=== PATIENT | male | born 1975 | race Caucasian/White ===

== ENCOUNTER → 2018-04-15 16:00 | Outpatient (CLI) | payer MEDICAID | END | disposition home or self-care (01) | LOC: D.CT 16:00 | DX: R04.2 Hemoptysis (principal) ==

== ENCOUNTER 2018-05-28 23:08 | Inpatient (IN) | payer MEDICAID ==
[~2018-05-28] VITALS: Ht 175.3 cm; Wt 103.6 kg
[2018-05-28] MEDS ORDERED: MEDROL DOSE PACK4 MG PO (23:13)
[2018-05-28 23:56] LABS: BASOPHILS 0.2 % (0-2); EOSINOPHILS 6.2 % (0-7); HEMATOCRIT 44.6 % (42.0-54.0); HEMOGLOBIN 15.7 g/dL (13.5-17.5); IMMATURE GRANULOCYTES 0.4 % (0-5); LYMPHOCYTES 18.3 % (15-50); MCH 31.3 pg (26.0-34.0); MCHC 35.2 g/dL (31.0-37.0); MCV 88.8 fL (80.0-100.0); MEAN PLATELET VOLUME 12.4 fL (7.4-10.4); MONOCYTES 5.2 % (2-11); NEUTROPHILS 69.7 % (40-80); PLATELET COUNT 181 10x3/uL (130-400); RBC 5.02 10x6/uL (4.20-6.10); RDW 12.5 % (11.5-14.5); WBC 15.1 10x3/uL (4.8-10.8)
[2018-05-29] VITALS (7 sets, daily range): BP systolic 123–183; BP diastolic 60–94; BMI 33.7
[2018-05-29 00:08] LABS: ALBUMIN 3.2 g/dL (3.4-5.0); ALKALINE PHOSPHATASE 76 U/L (46-116); ALT (SGPT) 37 U/L (10-68); BILIRUBIN - TOTAL 0.51 mg/dL (0.2-1.3); CALC OSMOLALITY 284 mosm/kg (275-300); CALCIUM 8.4 mg/dL (8.5-10.1); CARBON DIOXIDE 23.4 mmol/L (21.0-32.0); CHLORIDE - SERUM 105 mmol/L (98-107); CREATININE - SERUM 1.2 mg/dL (0.6-1.3); GLUCOSE 134 mg/dL (74-106); POTASSIUM - SERUM 3.8 mmol/L (3.5-5.1); PROTEIN - SERUM 7.1 g/dL (6.4-8.2); SODIUM 141 mmol/L (136-145); UREA NITROGEN 18 mg/dL (7-18); eGFR NON AFRICAN AMERICAN 71 mL/min (90-120)
[2018-05-29 00:19] LABS: APTT 24.7 SECONDS (22.8-39.4); INR 1.03 (0.85-1.17)
[2018-05-29 00:21] LABS: CKMB 4.5 U/L (0.0-3.6); CREATINE KINASE 277 UL (21-232)
[2018-05-29 00:24] LABS: PRO BNP 0 pg/mL (0-125); TROPONIN-I < 0.017 ng/mL (0.000-0.060)
--- NOTE | 2018-05-29 09:34 | NUR ---
PT ALERT X 4. BREATH SOUNDS DIMINISHED TO UPPER AND MIDDLE LOBES, ABSENT BREATH SOUNDS TO LOWER LOBES, 2L O2 PER NC. IV TO RIGHT FOREARM, SALINE LOCKED. FAMILY AT BEDSIDE. BED LOW, CALL LIGHT IN REACH. NO OTHER NEEDS AT THIS TIME.
[2018-05-29 12:59] LABS: BASOPHILS 0.1 % (0-2); EOSINOPHILS 0.1 % (0-7); IMMATURE GRANULOCYTES 0.4 % (0-5); MCH 30.9 pg (26.0-34.0); MCHC 34.9 g/dL (31.0-37.0); MCV 88.5 fL (80.0-100.0); MEAN PLATELET VOLUME 13.4 fL (7.4-10.4); MONOCYTES 1.1 % (2-11); NEUTROPHILS 90.3 % (40-80); PLATELET COUNT 195 10x3/uL (130-400); RBC 4.86 10x6/uL (4.20-6.10); RDW 12.5 % (11.5-14.5); WBC 14.3 10x3/uL (4.8-10.8)
[2018-05-29 13:07] LABS: CALC OSMOLALITY 286 mosm/kg (275-300); CALCIUM 8.7 mg/dL (8.5-10.1); CARBON DIOXIDE 22.7 mmol/L (21.0-32.0); CHLORIDE - SERUM 103 mmol/L (98-107); CREATININE - SERUM 1.1 mg/dL (0.6-1.3); POTASSIUM - SERUM 4.2 mmol/L (3.5-5.1); SODIUM 140 mmol/L (136-145); UREA NITROGEN 17 mg/dL (7-18); eGFR NON AFRICAN AMERICAN 78 mL/min (90-120)
[2018-05-29 13:13] LABS: GLUCOSE 206 mg/dL (74-106)
--- NOTE | 2018-05-29 19:45 | NUR ---
PT SITTING UP IN BED, NO SIGNS OF DISTRESS. ALERT AND ORIENTED. O2 2L/NC. PT STATES HE HAS FREQUENT COUGH W/ YELLOW SPUTUM. PT FACE TURNS RED WHEN COUGHING AND FEELS IF HE IS GOING TO PASS OUT. LUNG SOUNDS DIMINISHED IN LOWER LOBES. IV RIGHT FA SL. DRESSING CDI, FLUSHES EASILY. STATES NO PAIN. DENIES NEEDS. CL IN REACH, WILL CONTINUE TO MONITOR
--- NOTE | 2018-05-29 22:45 | NUR ---
CALLED TO ROOM BY PT FAMILY MEMBER SCREAMING HELP. UPON ENTERING ROOM PT FACE WAS RED AND PT DID NOT KNOW WHERE HE WAS. REORIENTED PT. PT STATES HE HAD BEEN COUGHING AND COULD NOT CATCH HIS BREATH, EVERYTHING WENT BLACK AND THEN HE WOKE UP TO US STANDING BESIDE HIM. FAMILY AT BEDSIDE STATES HE WAS COUGHING WHEN SUDDENLY HE STARTED SHAKING, ALMOST SEIZURE LIKE. SHAKING HAD STOPPED BEFORE STAFF ENTERED ROOM. VS FOLLOWS BP 144/79, O2 96%, HR 132, RESP 22, TEMP 98.9. 15 MINUTES LATER BP 126/78 HR 120. RESP CAME TO ROOM AND GAVE SCHEDULED BREATHING TRX. PT FELT BETTER AFTERWARDS. VSS. NO COMPLAINTS OR NEEDS AT THIS TIME. CL IN REACH, WILL CONTINUE TO MONITOR
[2018-05-30] VITALS: BP 132/67
[2018-05-30 04:00] VITALS: BP 116/73
[2018-05-30 05:18] LABS: HEMATOCRIT 41.5 % (42.0-54.0); HEMOGLOBIN 14.2 g/dL (13.5-17.5); MCH 30.7 pg (26.0-34.0); MCHC 34.2 g/dL (31.0-37.0); MCV 89.6 fL (80.0-100.0); MEAN PLATELET VOLUME 13.2 fL (7.4-10.4); PLATELET COUNT 188 10x3/uL (130-400); RBC 4.63 10x6/uL (4.20-6.10); RDW 12.7 % (11.5-14.5)
[2018-05-30 05:22] LABS: ANION GAP 16.6 mmol/L (8-16); CALCIUM 8.2 mg/dL (8.5-10.1); CARBON DIOXIDE 23.3 mmol/L (21.0-32.0); CREATININE - SERUM 1.2 mg/dL (0.6-1.3); POTASSIUM - SERUM 3.9 mmol/L (3.5-5.1)
[2018-05-30 05:33] LABS: LYMPHOCYTES 6 % (15-50); MONOCYTES 4 % (2-11); NEUTROPHILS 85 % (40-80); PLATELET ESTIMATE NORMAL
--- NOTE | 2018-05-30 08:19 | NUR ---
SITTING UP RIGHT IN BED, FAMILY MEMBER PRESENT, EVEN UNLABORED BREATHING, SCDS ON AND IN OPERATION, IV IN RIGHT FOREARM SALINE LOCKED, PATENT, DENIES ANY CURRENT NEEDS OR DISCOMFORTS, BED LOWERED AND LOCKED, CALL LIGHT WITHIN REACH. CPOC
[2018-05-30 08:42] VITALS: BP 124/80
[2018-05-30 13:36] VITALS: BP 139/70
[2018-05-30 15:32] LABS: APPEARANCE CLEAR (CLEAR); BILIRUBIN NEGATIVE (NEGATIVE); COLOR YELLOW (YELLOW); GLUCOSE 100 mg/dL (NEGATIVE); KETONE NEGATIVE (NEGATIVE); NITRITE NEGATIVE (NEGATIVE); PROTEIN NEGATIVE (NEGATIVE); SPECIFIC GRAVITY 1.015 (1.005-1.020); UROBILINOGEN NORMAL (NORMAL)
[2018-05-30 17:42] VITALS: BP 170/80
--- NOTE | 2018-05-30 18:48 | NUR ---
SITTING UP IN BED, EVEN UNLABORED BREATHING ON ROOM AIR, IV IN RIGHT FOREARM PATENT, SALINE LOCKED, RESPIRATORY CULTURE CONTAINER ON BED SIDE TABLE AND INSTRUCTED TO EXPELL ANY SPUTUM HE CAN COUGH UP INTO CONTAINER. VERBALIZES UNDERSTANDING, DENIES ANY CURRENT NEEDS OR DISCOMFORTS, BED LOWERED AND LOCKED, CALL LIGHT WITHIN REACH. CPOC
[2018-05-30 21:20] VITALS: BP 120/67
--- NOTE | 2018-05-30 22:20 | NUR ---
IV IN RIGHT FA PAINFUL WITH KNOT. DC'D WITH TIP INTACT. RESITED TO RIGHT FA. 22 GUAGE X1 STICK WITH GOOD BLODD RETURN NOTED.
[2018-05-31 02:06] VITALS: BP 123/68
--- NOTE | 2018-05-31 03:53 | NUR ---
RESTING QUITELY IN BED NO APPARENT DISTRESS CALL LIGHT IN REACH
[2018-05-31 05:02] LABS: BASOPHILS 0 % (0-2); EOSINOPHILS 0 % (0-7); HEMATOCRIT 39.8 % (42.0-54.0); HEMOGLOBIN 13.3 g/dL (13.5-17.5); IMMATURE GRANULOCYTES 0.7 % (0-5); LYMPHOCYTES 5.3 % (15-50); MCH 30.5 pg (26.0-34.0); MCHC 33.4 g/dL (31.0-37.0); MCV 91.3 fL (80.0-100.0); MEAN PLATELET VOLUME 13.4 fL (7.4-10.4); MONOCYTES 5.8 % (2-11); NEUTROPHILS 88.2 % (40-80); PLATELET COUNT 168 10x3/uL (130-400); RBC 4.36 10x6/uL (4.20-6.10); RDW 12.9 % (11.5-14.5); WBC 22.2 10x3/uL (4.8-10.8)
[2018-05-31 05:08] LABS: CALC OSMOLALITY 287 mosm/kg (275-300); CALCIUM 8.1 mg/dL (8.5-10.1); CARBON DIOXIDE 24.9 mmol/L (21.0-32.0); CHLORIDE - SERUM 106 mmol/L (98-107); CREATININE - SERUM 1.1 mg/dL (0.6-1.3); GLUCOSE 169 mg/dL (74-106); SODIUM 141 mmol/L (136-145); UREA NITROGEN 22 mg/dL (7-18); eGFR NON AFRICAN AMERICAN 78 mL/min (90-120)
[2018-05-31 06:00] VITALS: BP 120/73
--- NOTE | 2018-05-31 07:37 | NUR ---
AWAKE AND ALERT. ORIENTED X3. NO C/O AT THIS TIME. LUNGS ARE CLEAR BUT DIMINISHED. SKIN IS INTACT WITHOUT REDNESS. SL TO RIGHT FOREARM IS PATENT WTIHOUT REDNESS AT INSERTION SITE. AT BEDSIDE. DENIES NEEDS.
[2018-05-31 08:45] VITALS: BP 122/71
--- NOTE | 2018-05-31 09:00 | NUR ---
OFF UNIT VIA WC FOR TEST.
--- NOTE | 2018-05-31 10:00 | NUR ---
RETURNED FROM TEST. BREAKFAST SERVED IN ROOM. ATE 100%. DENIES NEEDS.
--- NOTE | 2018-05-31 13:19 | NUR ---
SITTING UP IN BED EATING LUNCH. DENIES NEEDS. NON PRODUCTIVE COUGH NOTED.
[2018-05-31 13:28] VITALS: BP 118/69
[2018-05-31 16:00] VITALS: BP 133/95
--- NOTE | 2018-05-31 18:00 | NUR ---
SITTING UP IN BED EATING SUPPER. NO C/O AT THIS TIME. NO COUGH NOTED IN SERVERAL HOURS. DENIES NEEDS. ANXIOUS TO GO HOME TOMMORROW.
--- NOTE | 2018-05-31 21:00 | NUR ---
WATCHING TV WITHOUT COMPLAITNS VOICED. RESP EVEN AND UNALBORED. NO DISTRESS NOTED. CL IN REACH. FAMILY AT BEDSIDE.
[2018-05-31 21:24] VITALS: BP 134/80
[2018-06-01 01:38] VITALS: BP 154/84
--- NOTE | 2018-06-01 01:45 | NUR ---
EYES CLOSED RESPIRATIONS WITH EASE AND UNLABORED. SR UP X2 CALL LIGHT WITHIN REACH.
[2018-06-01 05:03] VITALS: BP 127/61
[2018-06-01 06:30] LABS: BASOPHILS 0.2 % (0-2); EOSINOPHILS 0 % (0-7); HEMATOCRIT 36.5 % (42.0-54.0); HEMOGLOBIN 11.8 g/dL (13.5-17.5); LYMPHOCYTES 6.6 % (15-50); MCH 30.4 pg (26.0-34.0); MCHC 32.3 g/dL (31.0-37.0); MEAN PLATELET VOLUME 13.1 fL (7.4-10.4); MONOCYTES 9.3 % (2-11); NEUTROPHILS 81.9 % (40-80); PLATELET COUNT 137 10x3/uL (130-400); RBC 3.88 10x6/uL (4.20-6.10); RDW 12.9 % (11.5-14.5); WBC 17.4 10x3/uL (4.8-10.8)
[2018-06-01 06:34] LABS: MCV 94.1 fL (80.0-100.0)
[2018-06-01 06:39] LABS: CALC OSMOLALITY 285 mosm/kg (275-300); CALCIUM 7.9 mg/dL (8.5-10.1); CARBON DIOXIDE 21.7 mmol/L (21.0-32.0); CHLORIDE - SERUM 106 mmol/L (98-107); CREATININE - SERUM 0.9 mg/dL (0.6-1.3); GLUCOSE 197 mg/dL (74-106); SODIUM 140 mmol/L (136-145); UREA NITROGEN 19 mg/dL (7-18); eGFR NON AFRICAN AMERICAN > 90 mL/min (90-120)
[2018-06-01 06:47] LABS: POTASSIUM - SERUM 4.6 mmol/L (3.5-5.1)
--- NOTE | 2018-06-01 08:14 | NUR ---
PT AAOX4 RESP EVEN AND NONLABROED, NO SIGNS OF DISTRESS NOTED, STATES "IF IM GOING HOME TODAY I DONT WANT MY LOVENOX SHOT" I EXPRESSED TO PT I WOULD CHECK ON IT, CL IN REACH
[2018-06-01 08:50] VITALS: Ht 175.3 cm; Wt 103.6 kg
[2018-06-01 08:51] VITALS: BP 129/71
[2018-06-01 09:17] LABS: IMMUNOGLOBULIN A 251 mg/dL (90-386)
[2018-06-01] MEDS ORDERED: BROVANA15 MCG/2 M INH (09:27)
[2018-06-01] MEDS ORDERED: LISINOPRIL10 MG PO (09:27)
[2018-06-01] MEDS ORDERED: ALBUTEROL2.5 MG/3 M INH (09:27)
[2018-06-01] MEDS ORDERED: LEVOFLOXACIN500 MG PO (09:27)
[2018-06-01] MEDS ORDERED: FLUTICASONE PRO16 GM NASAL (09:28)
[2018-06-01] MEDS ORDERED: FLORAJEN3 CAPS460 MG PO (09:28)
[2018-06-01] MEDS ORDERED: MUCINEX DM ER1 EAC1 PO (09:28)
[2018-06-01] MEDS ORDERED: SINGULAIR10 MG PO (09:28)
[2018-06-01] MEDS ORDERED: Tessalon Perle PO (09:29)
[2018-06-01] MEDS ORDERED: PREDNISONE10 MG PO (09:29)
[2018-06-01] MEDS ORDERED: PULMICORT0.5 MG/21 UPD (09:29)
--- NOTE | 2018-06-01 10:10 | MORECARE ---
CASE MANAGEMENT DISCHARGE SUMMARY PATIENT: JARRET TRUONG UNIT: [id number] ADM DATE: 05/29/18 AGE: 42 : 75 SEX: M ROOM/BED: D.2206 AUTHOR: YUVALDOC PHYSICIAN: REFERRING PHYSICIAN: REECE DE LA TORRE MD DATE OF SERVICE: 06/01/18 Discharge Plan Patient Name: JARRET TRUONG Facility: [facility]:[place] : 1975 Planned Disposition: Home or Self Care Anticipated Discharge Date: Discharge Date: Expected LOS: Initial Reviewer: [email or web address] Initial Review Date: 05/29/2018 Generated: 06/01/18 11:10 am Comments DCP- Discharge Planning Updated by [email or web address]: Nemo Moreno on 06/01/18 9:[address] Patient Name: JARRET TRUONG Admission Status: ER Accout number: [id number] Admission Date: 05-29-2018 : 1975 Admission Diagnosis:SHORTNESS OF BREATH Attending: REECE DE LA TORRE Current LOS: 3 Anticipated DC Date: Planned Disposition: Home or Self Care Primary Insurance[facility] [employer] Discharge Planning Comments: CM met with patient to complete initial dc planning assessment. CM educated patient on the CM role and verbal consent given by patient to complete assessment. Patient lives at home with his where he is independent. At discharge patient plans to return home and feels this is a safe discharge. CM discussed availability of home health, rehab services, and medical equipment. Patient denied known discharge needs at this time. He bought a nebulizer when he was discharged from [facility] last week. CM will continue to follow and will assist as needed with dc plans/needs. His will be his local delivery driver home today. Geology Scientist: Nemo Moreno DCPIA - Discharge Planning Initial Assessment Updated by [email or web address]: Nemo Moreno on 06/01/18 10:06 am * Is the patient Alert and Oriented? Yes * How many steps to enter\exit or inside your home? * PCP tessa martínez * Pharmacy [facility] [address] * Preadmission Environment Home with Family * ADLs Independent * Equipment Nebulizer * List name and contact numbers for known caregivers / representatives who currently or will assist patient after discharge: Norma Goss) [phone] * Verbal permission to speak to the caregivers and representatives has been obtained from the patient. N/A * Community resources currently utilized None * Additional services required to return to the preadmission environment? No * Can the patient safely return to the preadmission environment? Yes * Has this patient been hospitalized within the prior 30 days at any hospital? Yes Patient Name: JARRET TRUONG Page 90008 at 1010 All edits/amendments must be made on the electronic document DICTATION DATE: 06/01/181008 FIELDWORK COORDINATOR: JIGNA 06/01/18 100 RPT#: [id number] DC DATE: STATUS: ADM IN [facility] [address] [place] [address] END OF REPORT
--- NOTE | 2018-06-01 11:36 | NUR ---
IV DC WITH CATH INTACT, DC INSTRUCTIONS GIVEN TO THE PT VERABLIZES UNDERSTANDING, LEFT AMBULATING VIA HOSPTITAL STAFF VIA PRIVATE VECHILE IN STABLE CONDITION
[2018-06-02 17:10] LABS: IMMUNOGLOBULIN E 67 IU/mL (0-100)
--- NOTE | 2018-06-02 17:48 | MORECARE ---
CASE MANAGEMENT DISCHARGE SUMMARY PATIENT: JARRET TRUONG UNIT: [id number] ADM DATE: 05/29/18 AGE: 42 : 75 SEX: M ROOM/BED: D.2206 AUTHOR: YUVAL,DOC PHYSICIAN: REFERRING PHYSICIAN: REECE DE LA TORRE MD DATE OF SERVICE: 06/02/18 Discharge Plan Patient Name: JARRET TRUONG Facility: [facility]:[place] : 1975 Planned Disposition: Home or Self Care Anticipated Discharge Date: Discharge Date: 06/01/2018 Expected LOS: 0 Initial Reviewer: [email or web address] Initial Review Date: 05/29/2018 Generated: 06/02/18 6:48 pm Comments DCP- Discharge Planning Updated by [email or web address]: Nemo Moreno on 06/01/18 9:[address] Patient Name: JARRTE TRUONG Admission Status: ER Accout number: [id number] Admission Date: 05-29-2018 : 1975 Admission Diagnosis:SHORTNESS OF BREATH Attending: REECE DE LA TORRE Current LOS: 3 Anticipated DC Date: Planned Disposition: Home or Self Care Primary Insurance: [employer] Discharge Planning Comments: CM met with patient to complete initial dc planning assessment. CM educated patient on the CM role and verbal consent given by patient to complete assessment. Patient lives at home with his where he is independent. At discharge patient plans to return home and feels this is a safe discharge. CM discussed availability of home health, rehab services, and medical equipment. Patient denied known discharge needs at this time. He bought a nebulizer when he was discharged from [facility] last week. CM will continue to follow and will assist as needed with dc plans/needs. His will be his dedicated regional driver home today. Disk Sander: Nemo Moreno DCPIA - Discharge Planning Initial Assessment Updated by [email or web address]: Nemo Moreno on 06/01/18 10:06 am * Is the patient Alert and Oriented? Yes * How many steps to enter\exit or inside your home? * PCP tessa martínez * Pharmacy [facility] [address] * Preadmission Environment Home with Family * ADLs Independent * Equipment Nebulizer * List name and contact numbers for known caregivers / representatives who currently or will assist patient after discharge: Norma Sosa () [phone] * Verbal permission to speak to the caregivers and representatives has been obtained from the patient. N/A * Community resources currently utilized None * Additional services required to return to the preadmission environment? No * Can the patient safely return to the preadmission environment? Yes * Has this patient been hospitalized within the prior 30 days at any hospital? Yes Last DP export: 06/01/18 9:10 a Patient Name: JARRET TRUONG Page 10835 at 1748 All edits/amendments must be made on the electronic document DICTATION DATE: 06/02/181747 ADJUSTER LEADER: JIGNA 06/02/181747 RPT#: [id number] SD DATE:06/01/18 STATUS: DIS IN [facility] [address] [place] [address] END OF REPORT
[2018-06-03 07:28] LABS: B PARAPERTUSSIS DNA Negative (Negative); B PERTUSSIS DNA Negative (Negative)
[2018-06-05 06:13] LABS: IGG SUBCLASS 1 290 mg/dL (248-810); IGG SUBCLASS 2 430 mg/dL (130-555); IGG SUBCLASS 3 54 mg/dL (15-102); IGG SUBCLASS 4 20 mg/dL (2-96); IMMUNOGLOBULIN G 770 mg/dL (700-1600)
== END 2018-06-01 11:40 | disposition home or self-care (01) | DRG 189 ==
LOC: D.ER 23:08 → D.MS 05-29 00:05 → D.EDHOLD 05-29 00:05 → D.MS 05-29 01:21
PROVIDERS: Emergency Medicine; Internal Medicine Pulmonary Disease; ADMIT Internal Medicine Nephrology
DX: J96.01 Acute respiratory failure with hypoxia (principal); R04.2 Hemoptysis; J44.0 Chronic obstructive pulmonary disease with (acute) lower respiratory infection; J45.901 Unspecified asthma with (acute) exacerbation; J20.9 Acute bronchitis, unspecified; J45.909 Unspecified asthma, uncomplicated; I10 Essential (primary) hypertension; E66.9 Obesity, unspecified; Z68.37 Body mass index [BMI] 37.0-37.9, adult

== ENCOUNTER → 2019-05-03 12:19 | Outpatient (CLI) | payer OTHER ==
[~2019-05-03 12:19] MED LIST: ALBUTEROL2.5 MG/3 M INH; BROVANA15 MCG/2 M INH; FLORAJEN3 CAPS460 MG PO; FLUTICASONE PRO16 GM NASAL; LEVOFLOXACIN500 MG PO; LISINOPRIL10 MG PO; MEDROL DOSE PACK4 MG PO; MUCINEX DM ER1 EAC1 PO; PREDNISONE10 MG PO; PULMICORT0.5 MG/21 UPD; SINGULAIR10 MG PO; Tessalon Perle PO
[2019-05-03 12:53] LABS: BASOPHILS 0.4 % (0-2); EOSINOPHILS 2.1 % (0-7); HEMATOCRIT 46.4 % (42.0-54.0); IMMATURE GRANULOCYTES 0.4 % (0-5); LYMPHOCYTES 21.5 % (15-50); MCH 31.3 pg (26.0-34.0); MCHC 34.5 g/dL (31.0-37.0); MCV 90.8 fL (80.0-100.0); MEAN PLATELET VOLUME 12.9 fL (7.4-10.4); MONOCYTES 7.4 % (2-11); NEUTROPHILS 68.2 % (40-80); PLATELET COUNT 175 10x3/uL (130-400); RBC 5.11 10x6/uL (4.20-6.10); RDW 12.5 % (11.5-14.5); WBC 10.9 10x3/uL (4.8-10.8)
[2019-05-03 14:04] LABS: ERYTHROCYTE SEDIMENTATION RATE 10 mm/hr (0-15)
== END | disposition home or self-care (01) ==
LOC: D.RAD 11:47
PROVIDERS: ATTEND Internal Medicine Gastroenterology
DX: R10.13 Epigastric pain (principal); R07.9 Chest pain, unspecified; Z98.890 Other specified postprocedural states